=== PATIENT | female | born 1980 | race Caucasian/White ===

== ENCOUNTER 2024-12-23 14:21 | Emergency (ER) | payer OTHER, SELFPAY ==
--- NOTE | ~2024-12-23 | XR_ITS ---
EXAM: XR foot RT min 3V DATE: 12/23/2024 15:14 HISTORY: pain with trauma . COMPARISON: None available. FINDINGS: Normal mineralization. No fracture or dislocation. No lytic or blastic lesion. Joint space s are maintained. No erosion or periosteal change. Soft tissues within normal limits. IMPRESSION: No acute osseous finding in the right foot. Reviewed, dictated and finalized at location K.
[2024-12-23 14:34] VITALS: BP 135/84; PULSE 108; RESP 18; TEMP 36.9; O2SAT 97
--- NOTE | 2024-12-23 14:34 | ED.LOWEXIN ---
HPI - Extremity Injury (Lower) General Chief Complaint: Extremity Injury, Lower Stated Complaint: Right Foot Injury Time Seen by Provider: 12/23/24 14:24 Patient presents to the [facility] with complaints of swelling, pain, and bruising to right foot that began last night after she missed a step and twisted this foot. Patient reports applying ice and taking ibuprofen with some relief of symptoms. Patient does report some minimal numbness to little toe. Related Data Home Medications ?Medication ?Instructions ?Recorded ?Confirmed ?Last Taken ?Type No Home Medications 12/23/24 12/23/24 Unknown History Allergies Allergy/AdvReac Type Severity Reaction Status Date / Time No Known Allergies Allergy Verified 12/23/24 14:35 Review of Systems Constitutional: Constitutional: Reports as per HPI, Denies chills, Denies fatigue, Denies fever(s) and Denies weakness Eyes: Eyes: Reports no additional eye complaints Cardiovascular: Cardiovascular: Reports no additional cardiovascular complaints Respiratory: Respiratory: Reports no additional respiratory complaints Gastrointestinal: Gastrointestinal: Reports no additional gastrointestinal complaints Genitourinary: Genitourinary: Reports no additional female genitourinary complaints Musculoskeletal: Musculoskeletal: Reports as per HPI, Denies back pain, Denies myalgias, Reports arthralgias, Reports joint swelling and Denies muscle cramps Integumentary/Breasts: Skin/Breast: Reports as per HPI, Denies breast mass, Denies pruritus, Denies rash and Denies skin ulcer Comments: Bruising right foot Neurologic: Reports as per HPI, Denies numbness and Denies weakness Psychiatric: Psychiatric: Reports no additional psychiatric complaints Endocrine: Endocrine: Reports no additional endocrine complaints Hematologic/Lymphatic: Hematologic/Lymphatic: Reports no additional hematologic/lymphatic complaints Allergic/Immunologic: Allergic/Immunologic: Reports no additional allergic/immunologic complaints Exam Const: General: healthy appearing and no acute distress Nutritional Appearance: well nourished Orientation/consciousness: patient oriented x3 Limitations: no limitations Resp: Effort & Inspection: normal respiratory effort Auscultation: clear to auscultation bilaterally Cardio: Rate: regular rate Rhythm: regular rhythm Skin: General skin exam: normal color Rashes: no rashes Wounds: no wounds Neuro: General: patient oriented x3 Speech: normal speech Gait exam (Neuro): gait abnormal ( limited by pain) Extrem: Right lower extremity: foot Details: normal capillary refill, abnormal to inspection, tenderness Location: of the dorsal foot and of the base of the 5th metatarsal, abnormal ROM of toe, edema Location: of the dorsal foot and at the base of the 5th metatarsal, ecchymosis and vascular exam Details: dorsalis pedis pulse present, posterior tibial pulse present and normal capillary refill; abnormal to inspection, no unusual warmth, no abrasion and no laceration Psych: Mental Status: mental status grossly normal Affect: normal affect Attitude: cooperative Course Course Level of Care: Express Care Visit Vital Signs Vital signs: Vital Signs Temperature 98.4 F 12/23/24 14:34 Pulse Rate 108 H 12/23/24 14:34 Respiratory Rate 18 12/23/24 14:34 Blood Pressure 135/84 12/23/24 14:34 Pulse Oximetry 97 12/23/24 14:34 Oxygen Delivery Room Air 12/23/24 14:34 Temperature 98.4 F 12/23/24 14:34 Pulse Rate 108 H 12/23/24 14:34 Respiratory Rate 18 12/23/24 14:34 Blood Pressure 135/84 12/23/24 14:34 Pulse Oximetry 97 12/23/24 14:34 Oxygen Delivery Room Air 12/23/24 14:34 MDM - Extremity Injury (Lower) MDM Narrative Medical decision making narrative: x-rayed orders of right foot. Discharge instructions reviewed with patient, as well as provided in writing per nursing staff. The instructions also include specific and strict return/GO TO THE ER as well as f/u information. All questions have been answered, and the patient deny any further questions with discharge and discharge plan. Differential Diagnosis Differential diagnosis: Likely ankle sprain and strain, puncture wound of foot, fracture of toe and ankle fracture Imaging Data Attestation: I personally reviewed and interpreted this imaging study as follows: My impression: no fracture or dislocation noted. Radiologist's impression: IMPRESSION: No acute osseous finding in the right foot. Reviewed, dictated and finalized at location K. Discharge Plan Discharge Clinical Impression: Sprain of foot, right Patient Disposition: Home Condition: Stable Instructions: Antibiotic Form, Foot Sprain (ED) Additional Instructions: Xray showed no fracture. Minimize activities that aggravate the condition The RICE protocol. Follow the RICE protocol as soon as possible after your injury: Rest your foot by not walking on it. Ice should be immediately applied to keep the swelling down. It can be used for 20 to 30 minutes, three or four times daily. Do not apply ice directly to your skin. Compression dressings, bandages or froy-wraps will immobilize and support your injured ankle. Elevate your ankle above the level of your heart as often as possible during the first 48 hours. Medication: Nonsteroidal anti-inflammatory drugs (NSAIDs) such as ibuprofen and naproxen can help control pain and swelling. Because they improve function by both reducing swelling and controlling pain, they are a better option for mild sprains than narcotic pain medicines. Please schedule a follow-up visit with your personal physician for further evaluation and treatment within 1week OR If your symptoms persist, change or worsen significantly before you can contact your personal physician then please, without delay, go to the emergency department for further evaluation. Patient Language: Maori Prescriptions: No Action No Home Medications Follow-up/Referrals: PHYSICIAN,CAPTAIN/AIRLINE PILOT [Primary Care Provider] - Time of Disposition: 15:26
== END 2024-12-23 15:34 | disposition home or self-care (01) ==
PROVIDERS: Emergency Provider Nurse Practitioner Family
DX: S93.601A Unspecified sprain of right foot, initial encounter (principal); X50.1XXA Overexertion from prolonged static or awkward postures, initial encounter
CPT/HCPCS: 73630; 99203; G0463

== ENCOUNTER 2025-03-07 19:01 | Emergency (ER) | payer OTHER, SELFPAY ==
[2025-03-07 19:09] VITALS: BP 138/88; PULSE 109; RESP 16; TEMP 36.6; O2SAT 100
--- NOTE | 2025-03-07 20:05 | ED.URI ---
HPI - URI/Sore Throat General Chief Complaint: Upper Respiratory Infection Stated Complaint: asthma/congestion Time Seen by Provider: 03/07/25 19:56 Source: patient and RN notes reviewed Mode of arrival: ambulatory Limitations: no limitations History of Present Illness HPI Narrative: Patient presents today with a one-week history of dry cough, nasal congestion, rhinorrhea, mild shortness of breath. Denies fever. She has been using allergy medicine, steroid nasal spray, and her albuterol inhaler with mild improvement. History of asthma. She moved to the area of from [place] 2 months ago and is waiting for an appointment with her new PCP. Denies any known sick contacts. Related Data Home Medications ?Medication ?Instructions ?Recorded ?Confirmed ?Last Taken ?Type albuterol sulfate 90 mcg/actuation inhalation 03/07/25 Unknown History aerosol inhaler atomoxetine 25 mg capsule mg PO 03/07/25 Unknown History escitalopram oxalate 10 mg tablet mg 03/07/25 Unknown History fluticasone 250 mcg-salmeterol 50 inhalation 03/07/25 Unknown History mcg/dose blistr powdr for inhalation Allergies Allergy/AdvReac Type Severity Reaction Status Date / Time No Known Allergies Allergy Verified 03/07/25 19:11 [facility] Past Medical History Medical History (Updated 03/07/25 @ 20:23 by Carli Burgos, [facility], ) Asthma Comments At time of signature, I have reviewed and agree with nursing past medical, surgical, social and family history unless otherwise noted. Please see nursing chart for further information. There is no relevant family history pertinent to the presenting complaint Exam Narrative: GENERAL: Mildly ill-appearing, well-nourished, and in no acute distress. HEAD: Normocephalic, atraumatic. EYES: EOMI. No redness or drainage. Conjunctivae normal. ENT: Mucous membranes pink and moist. Nares congested with rhinorrhea. TMs normal bilaterally. Throat normal. Uvula midline. NECK: Normal AROM. Supple. No lymphadenopathy. CHEST: No respiratory distress. Clear to auscultation. HEART: Regular rate and rhythm. No murmur appreciated. EXTREMITIES: Normal range of motion. No edema. SKIN: Warm, dry, no rash. Capillary refill normal. Normal skin turgor. NEURO: No focal deficits. Alert and oriented x3. Gait steady. PSYCH: Normal affect. No signs of depression or anxiety. Course Course Level of Care: Express Care Visit Vital Signs Vital signs: Vital Signs Temperature 97.8 F 03/07/25 19:09 Pulse Rate 109 H 03/07/25 19:09 Respiratory Rate 16 03/07/25 19:09 Blood Pressure 138/88 03/07/25 19:09 Pulse Oximetry 100 03/07/25 19:09 Oxygen Delivery Room Air 03/07/25 19:09 Temperature 97.8 F 03/07/25 19:09 Pulse Rate 109 H 03/07/25 19:09 Respiratory Rate 16 03/07/25 19:09 Blood Pressure 138/88 03/07/25 19:09 Pulse Oximetry 100 03/07/25 19:09 Oxygen Delivery Room Air 03/07/25 19:09 Reviewed MDM - URI/Sore Throat MDM Narrative Medical decision making narrative: 44-year-old female presents today with a one-week history of cough, congestion, rhinorrhea, mild shortness of breath. She has been using OTC medication with some mild relief. Denies fever or known sick contacts. History of asthma. COVID and influenza swabs negative. Upon exam, patient has some nasal congestion with rhinorrhea. Lungs are clear to auscultation. She will be started on a course of prednisone with some benzonatate. Symptoms likely viral in etiology. Discussed [id number] medication use and duration of illness. Anticipatory guidance given. Vital signs stable. ED precautions given. Differential Diagnosis Differential diagnosis: Likely upper respiratory infection, viral infection, influenza and other (COVID, asthma exacerbation) Lab Data Attestation: I reviewed the patient's lab results. Labs: Lab Results 03/07/25 Range/Units 20:07 POC Influenza A Ag Negative (Negative) POC Influenza B Ag Negative (Negative) POC SARS CoV-2 Ag Negative (Negative) Critical Care Time Critical Care Time Critical Care Time: No Discharge Plan Discharge Clinical Impression: Upper respiratory infection Qualifiers: URI type: unspecified URI Qualified Code(s): J06.9 - Acute upper respiratory infection, unspecified Asthma exacerbation Qualifiers: Asthma severity: unspecified severity Asthma persistence: unspecified Qualified Code(s): J45.901 - Unspecified asthma with (acute) exacerbation Patient Disposition: Home Condition: Stable Instructions: Upper Respiratory Infection (DC) Additional Instructions: Your COVID-19 and influenza swabs are negative today. Symptoms are likely due to a viral illness, which is not treated with antibiotics. Virus symptoms can last for up to 7-10days. Take Tylenol or ibuprofen for pain or fever. Take the prednisone and Tessalon Perles as directed. Rest and stay hydrated. Follow up with your PCP in 5 days if symptoms are not improving. Go to the ER immediately if you develop shortness of breath, difficulty swallowing, or any other concerning symptoms. Your blood pressure was elevated above 120/80 today at Urgent Care. This puts you above the threshold for follow up. Please schedule a followup visit with your personal physician as soon as possible, for further evaluation and treatment. Even blood pressure exceeding 120/80 may indicate pre-hypertension. Patient Language: Moldovan Prescriptions: New benzonatate 200 mg capsule 200 mg PO TID PRN (Reason: cough) Qty: 20 0RF prednisone 50 mg tablet 50 mg PO DAILY 5 Days Qty: 5 0RF No Action fluticasone propion-salmeterol 250-50 mcg/dose blister with device INHALATION albuterol sulfate 90 mcg/actuation HFA aerosol inhaler INHALATION escitalopram oxalate 10 mg tablet atomoxetine 25 mg capsule PO Follow-up/Referrals: PHYSICIAN,CONFIGURATION MANAGEMENT CONSULTANT [Primary Care Provider, Internal Medicine] Time of Disposition: 20:05
[2025-03-07 20:09] LABS: EDCOVIDSCREEN Negative (Negative); EDINFLUASCREEN Negative (Negative); EDINFLUBSCREEN Negative (Negative)
== END 2025-03-07 20:11 | disposition home or self-care (01) ==
PROVIDERS: Emergency Provider Nurse Practitioner
DX: J06.9 Acute upper respiratory infection, unspecified (principal); J45.901 Unspecified asthma with (acute) exacerbation; Z20.822 Contact with and (suspected) exposure to COVID-19
CPT/HCPCS: 87426; 87804; 99213; G0463